=== PATIENT | male | born 1945 | race Caucasian/White ===

== ENCOUNTER 2020-09-29 12:58 | Emergency (ER) | payer MEDICARE ==
[~2020-09-29] VITALS: Ht 175.3 cm; Wt 70.0 kg
[2020-09-29 12:58] VITALS: BP 123/75
[~2020-09-29 12:58] MED LIST: ADVAIR DISK1 INH; ARTHROTEC 75 PO; ASPIRIN 81 LOW81 MG PO; CELEBREX50 MG OR; ENALAPRIL5 MG PO; METOPROLOL SUCC25 MG PO; ULTRAM50 M1 PO; VICODIN1 TA1 PO; XARELTO10 MG PO
[2020-09-29 13:37] LABS: HEMATOCRIT 41.1 % (39.0-50.0); HEMOGLOBIN 13.5 g/dl (14.0-18.0); IMMATURE GRANULOCYTES 0.5 % (0.0-5.0); MEAN CELL VOLUME 95.1 fL CALC (80.0-100.0); MEAN CORPUSCULAR HGB 31.3 pG CALC (26.0-32.0); MEAN CORPUSCULAR HGB CONC 32.8 g/dL CAL (32.0-36.0); NEUT# 3.81 thou/uL (1.82-7.42); RED BLOOD COUNT 4.32 mill/uL (4.70-6.10); RED CELL DISTRI WIDTH 12.9 % (11.5-15.5)
[2020-09-29 13:52] LABS: ALKALINE PHOSPHATASE 43 u/l (38-126); ANION GAP 10 (6-22 (CALC)); BUN 27 mg/dL (8-23); BUN/CREATININE RATIO 24 (12-20 (CALC)); CARBON DIOXIDE 28 mmol/l (22-30); CHLORIDE 106 mmol/l (95-108); CREATININE 1.1 mg/dL (0.7-1.3); GFR > 60 ML/MIN (>=60 (CALC)); GFR FOR AFR.AMER. > 60 ML/MIN (>=60 (CALC)); POTASSIUM 4.5 mmol/l (3.5-5.1); SGOT/AST 23 u/l (19-48); SODIUM 139 mmol/l (137-146); TOTAL PROTEIN 6.1 g/dL (6.3-8.2)
[2020-09-29 13:54] LABS: BILIRUBIN, TOTAL 0.5 mg/dL (0.0-1.4)
[2020-09-29] MEDS ORDERED: VENTOLIN HFA IN (13:57)
[2020-09-29 14:43] LABS: ACT PARTIAL THROMBO TIME 23.6 SECONDS (20.0-32.5); PROTHROMBIN TIME 10.3 SECONDS (9.0-12.5)
== END 2020-09-29 15:20 | disposition left against medical advice (07) ==
LOC: ED 12:58
DX: I21.4 Non-ST elevation (NSTEMI) myocardial infarction (principal); R55 Syncope and collapse; I10 Essential (primary) hypertension; I25.10 Atherosclerotic heart disease of native coronary artery without angina pectoris; Z91.19 Patient's noncompliance with other medical treatment and regimen

== ENCOUNTER 2023-03-23 10:27 | Emergency (ER) | payer MEDICARE ==
[~2023-03-23] VITALS: Ht 175.3 cm; Wt 60.0 kg
[~2023-03-23 10:27] MED LIST changes: +ATORVASTATIN CA40 MG PO; +CIPROFLOXACN750 MG PO; +ENALAPRIL2.5 MG PO; +SORINE80 MG PO; +VENTOLIN HFA IN
[2023-03-23 10:38] VITALS: BP 122/61
[2023-03-23 11:38] LABS: BASO% 0.3 % (0-3); EOS% 0.3 % (0-8); HEMATOCRIT 41.2 % (39.0-50.0); HEMOGLOBIN 13.1 g/dl (14.0-18.0); IMMATURE GRANULOCYTES 0.3 % (0.0-5.0); LYMPH% 7.2 % (15-41); MEAN CELL VOLUME 97.2 fL CALC (80.0-100.0); MEAN CORPUSCULAR HGB 30.9 pG CALC (26.0-32.0); MEAN CORPUSCULAR HGB CONC 31.8 g/dL CAL (32.0-36.0); MONO% 8.8 % (2-13); NEUT# 12.38 thou/uL (1.82-7.42); NEUT% 83.1 % (42-76); RED BLOOD COUNT 4.24 mill/uL (4.70-6.10); RED CELL DISTRI WIDTH 12.9 % (11.5-15.5)
[2023-03-23 12:04] LABS: ALBUMIN 4.2 g/dL (3.2-5.0); ALKALINE PHOSPHATASE 77 u/l (38-126); ANION GAP 15 (6-22 (CALC)); BILIRUBIN, TOTAL 1.2 mg/dL (0.2-1.3); BUN 20 mg/dL (8-23); BUN/CREATININE RATIO 23 (12-20 (CALC)); CARBON DIOXIDE 27 mmol/l (22-30); CHLORIDE 98 mmol/l (95-108); CREATININE 0.9 mg/dL (0.7-1.3); GFR FOR AFR.AMER. > 60 ML/MIN (>=60 (CALC)); GFR OTHER RACES > 60 ML/MIN (>=60 (CALC)); POTASSIUM 3.9 mmol/l (3.5-5.1); SGOT/AST 32 u/l (19-48); SODIUM 136 mmol/l (137-146); TOTAL PROTEIN 7.3 g/dL (6.3-8.2)
[2023-03-23 12:22] VITALS: BP 131/70
[2023-03-23 13:08] VITALS: BP 131/70
== END 2023-03-23 13:09 | disposition left against medical advice (07) ==
LOC: ED 10:27
PROVIDERS: Family Medicine
DX: R19.7 Diarrhea, unspecified (principal); S51.852A Open bite of left forearm, initial encounter; I10 Essential (primary) hypertension; I25.10 Atherosclerotic heart disease of native coronary artery without angina pectoris; W55.01XA Bitten by cat, initial encounter; Z53.29 Procedure and treatment not carried out because of patient's decision for other reasons